=== PATIENT | male | born 1985 | race Caucasian/White ===

== ENCOUNTER 2022-05-29 12:50 | Emergency (ER) | payer OTHER, MEDICAID ==
[~2022-05-29] VITALS: Ht 180.3 cm; Wt 90.0 kg
[~2022-05-29 12:50] MED LIST: NAPROSYN500 MG OR; NO MEDS; ULTRAM50 M1 PO
[2022-05-29 13:09] VITALS: BP 111/66
[2022-05-29 13:15] VITALS: BP 101/64
[2022-05-29 13:30] VITALS: BP 121/78
[2022-05-29 15:18] VITALS: BP 102/68
[2022-05-29] MEDS ORDERED: CYCLOBENZAPRINE10 MG PO (15:24)
[2022-05-29] MEDS ORDERED: NAPROXEN500 MG PO (15:24)
[2022-05-29 15:26] VITALS: BP 102/68
== END 2022-05-29 15:31 | disposition home or self-care (01) | DRG 552 ==
LOC: ED 12:50
DX: M54.2 Cervicalgia (principal); M54.50 Low back pain, unspecified; R51.9 Headache, unspecified; V49.40XA Driver injured in collision with unspecified motor vehicles in traffic accident, initial encounter